=== PATIENT | female | born 1990 | race African-American/Black ===

== ENCOUNTER 2020-05-07 20:55 | Emergency (ER) | payer OTHER ==
[~2020-05-07] VITALS: Ht 157.5 cm; Wt 59.0 kg
[2020-05-07 23:25] LABS: CLARITY URINE CLOUDY (CLEAR); COLOR URINE DARK YELLOW (YELLOW); KETONES URINE TRACE (NEGATIVE); LEUKOCYTE ESTERASE URINE NEGATIVE (NEGATIVE); NITRITE URINE NEGATIVE (NEGATIVE); OCCULT BLOOD URINE NEGATIVE (NEGATIVE); PROTEIN URINE 1+ (NEGATIVE); SPECIFIC GRAVITY URINE 1.029 (1.005-1.030)
[2020-05-07 23:30] LABS: BASOPHILS % 0.7 % (0.0-2.0); EOSINOPHILS % 0.5 % (0.0-5.0); HEMOGLOBIN. 13.2 g/dL (12.0-16.0); LYMPHOCYTES % 51.2 % (20.0-50.0); MEAN CORPUSCULAR VOLUME 88.8 fL (81.0-99.0); MEAN PLATELET VOLUME 8.2 fl (7.4-10.4); MONOCYTES % 7.8 % (2.0-8.0); NEUTROPHILS % 39.8 % (40.0-76.0); PLATELET 272 x1000/uL (130-400); RED BLOOD CELL COUNT 4.39 mill/uL (4.2-5.4); RED CELL DISTRIBUTION WIDTH 14.1 % (11.6-14.6)
[2020-05-07 23:32] LABS: CHLORIDE 100 mEq/L (98-107)
[2020-05-07 23:35] LABS: ETHANOL BLOOD < 10 mg/dL
[2020-05-07 23:39] LABS: *BARBITURATES SCREEN URINE NEGATIVE (NEGATIVE); *BENZODIAZEPINES SCREEN URINE NEGATIVE (NEGATIVE)
[2020-05-07 23:41] LABS: *COCAINE SCREEN URINE NEGATIVE (NEGATIVE); CANNABINOID URINE SCREEN NEGATIVE (NEGATIVE); METHADONE URINE SCREEN NEGATIVE (NEGATIVE); OPIATES URINE SCREEN NEGATIVE (NEGATIVE); PHENCYCLIDINE URINE SCREEN NEGATIVE (NEGATIVE)
[2020-05-07 23:53] LABS: *AMPHETAMINES SCREEN URINE PRESUMTIVE POSITIVE (NEGATIVE)
[2020-05-07 23:57] LABS: HCG SCREEN NEGATIVE
[2020-05-08] MEDS ORDERED: SODIUM CHLORIDE 0.9% 1,000 ML IV ONE (00:02)
[2020-05-08 13:54] VITALS: BP 110/55
== END 2020-05-08 14:13 | disposition home or self-care (01) ==
LOC: ER 21:13
DX: F32.9 Major depressive disorder, single episode, unspecified (principal); F15.10 Other stimulant abuse, uncomplicated; Z59.0 Homelessness
CPT/HCPCS: 36415; 70450; 80053; 80305; 80320; 81003; 82962; 84484; 84703; 85025; 93005; 96360; 96361; 99285; J7030; G0480